=== PATIENT | female | born 1960 | race Caucasian/White ===

== ENCOUNTER 2021-07-11 14:16 | Emergency (ER) | payer BC ==
--- OUTSIDE RECORDS SUMMARY | 2021-07-11 14:19 | XMS REPORT | Continuity of Care Document ---
:1960 Author Organization [facility] t Address [address] [place] [address] Care Team Providers Name Role Phone HANNAH JOHNSON Primary Care Physician Unavailable DIOMAMPO Attending Clinician Unavailable DIOMAMPO Attending Clinician Unavailable Therapist, Pulmonary Attending Clinician Unavailable Donovan Fleming MD Attending Clinician Payers Payer Name Policy Type Policy Number Effective Date Expiration Date S jean [facility] [id number] 2016 00:00:00 Problems Condition Condition Condition Status Onset Resolution Last Treating Co mments Source Name Details Category Date Date Treatment Clinician Date Acute Acute Disease Active 2020-02 Univers hypoxemic hypoxemic 02-27 ity of [place] 00 Medi rodrigue due to due to Branch COVID-19 COVID-19 Hypothyroi Hypothyroi Disease Active 2011-02 Overview : Univers dism dism 2-07 Formattin ity of 00:00: g of this [place] 00 note Medical might be Branch different from the original. ICD10 Diagnosis Term Educational Technologist Utility HLD HLD Disease Active 2011-02 Overview: Univer s (hyperlipi (hyperlipi 2-07 Formattin ity of demia) demia) 00:00: g of this [place] 00 note Medical might be Branch different from the original. ICD10 Diagnosis Term Educational Technologist Utility Prediabete Prediabete Disease Active 2012-1 U nivers s s 2-07 ity of 00:00: [place] 00 [facility] Obesity Obesity Disease Active 2011-02 Univers 04-03 ity of 00:00: [place] 00 [facility] Allergies, Adverse Reactions, Alerts Allergy Allergy Status Severity Reaction(s) Onset Inactive Treating Comm ents Source Name Type Date Date Clinician NO KNOWN Drug Active [facility] ALLERGIE Class ity of S [facility] Social History Social Habit Start Date Stop Date Quantity Comments Source Exposure to Not sure [facility] SARS-CoV-2 (event) [facility] Alcohol intake 2021-02-13 2021-02-13 Current University of 00:00:00 00:00:00 non-drinker of [facility] alcohol [place] (finding) Cigarettes smoked 2021-01-26 2021-01-26 Univers ity of current (pack per 00:00:00 00:00:00 [facility] ) - Reported Branch Cigarette 2021-01-26 2021-01-26 University of pack-years 00:00:00 00:00:00 [facility] Tobacco use and 2021-01-26 2021-01-26 Never used Universit y of exposure 00:00:00 00:00:00 [facility] History of tobacco 1991-12-27 2017-12-26 Cigarette Smoker University of use 00:00:00 00:00:00 [facility] Sex Ass[birth year] At [birth year] Universit y of 00:00:00 00:00:00 [facility] Smoking Status Start Date Stop Date Source Former smoker 2021-01-26 00:00:00 2021-01-26 00:00:00 Universi ty of [facility] Medications Ordered Filled Start Stop Current Ordering Indication Dosage Frequency Signature Comments Components Source Medication Medication Date Date Medication? Clinician (SIG) Name Name levothyroxi 2020-02 Yes 50ug Take 50 Uni vers ne 2-02 mcg by ity of (SYNTHROID) 13:12: mouth [place] 50 mcg 15 every Medical tablet morning. Branch budesonide/ 2020-02 Yes Inhale Univ ers formoterol 2-02 every ity of fumarate 13:12: other day. Doni as (SYMBICORT 15 Medical INHALE) Branch metformin 2020-02 Yes 500mg Take 500 Uni vers ER 500 mg 2-02 mg by ity of 24 hr 13:12: mouth 2 [place] tablet 15 (two) Medical times Branch daily. AMLODIPINE 2020-02 Yes 5mg [address] [facility] s BESYLATE, 2-02 ity of BULK, MISC 13:12: [place] 15 Medical Branch cholecalcif 2020-02 Yes [id number] 1000U Take 1 Univers gerson, 1-21 tablet by ity of vitamin D3, 00:00: mouth [place] 25 mcg 00 daily. Medical (1,000 Branch unit) tablet albuterol 2020-02 Yes [id number] 2{puff} Inhale 2 Univers 90 1-20 Puffs ity of mcg/actuati 00:00: every 6 [place] as on inhaler 00 (six) Medical hours as Branch needed for Wheezing, Shortness of Breath, Bronchospa sm or Chest tightness. Lancets 2011-02 Yes Univers (ACCU-CHEK 2-07 ity of SOFTCLIX 00:00: [place] LANCETS) 00 Medical [facility] Branch blood sugar 2011-[address] [facility] ers diagnostic 2-07 ity of (CHEMSTRIP 00:00: [place] BG) strip 00 [facility] Vital Signs Vital Name Observation Time Observation Value Comments Source Systolic blood 2021-02-10 144 mm[Hg] manual; reports University of pressure 20:00:00 took BP meds ~1 [place] Medica l hr ago. Branch Diastolic blood 2021-02-10 80 mm[Hg] manual; reports [facility] y of pressure 20:00:00 took BP meds ~1 [place] Medica l hr ago. Branch Heart rate 2021-02-10 82 /min [facility] 20:00:00 [facility] Respiratory rate 2021-02-10 20 /min [facility] 20:00:00 [facility] Oxygen saturation 2021-02-10 100 /min on 3 l/m NC; [facility] in Arterial blood 20:00:00 decreased to 2 [place] Me dical by Pulse oximetry l/m sitting, Branch during class Procedures This patient has no known procedures. Encounters Start End Encounter Admission Attending Care Care Encounter Source Date/Time Date/Time Type Type Clinicians Facility Department ID 2021-11-13 2021-11-13 Outpatient DANIELA VEGA [facility] [id number] Univers 14:00:00 14:00:00 [facility] [id number] 2021-05-01 2021-05-01 Outpatient R DANIELA RIDER [facility] [id number] Univers 14:00:00 18:37:46 DANIELA RIDER itgénesis [facility] 2021-02-10 2021-02-10 Ancillary Therapist, Adc Pulmonary [facility] [id number] Univers 14:30:00 16:15:28 Visit Wero Fleming GASTON [id number] [facility] [id number] Christie ewing PROFESSIO [phone] Ar dical [facility] 296 Branch BUILDING Results This patient has no known results.
[2021-07-11] MEDS ORDERED: NA CHLORIDE 0.9% 1,000 ML ONE (15:18)
[2021-07-11] MEDS ORDERED: FOLIC ACID 5 MG/ML VIAL ONE (15:19)
--- NOTE | 2021-07-11 15:26 | RAD REPORT ---
EXAM DESCRIPTION: CT - Head Brain Wo Cont - 07/11/2021 3:17 pm CLINICAL HISTORY: Neuro deficit, acute, stroke suspected Headache, drowsiness COMPARISON: No comparisons TECHNIQUE: All CT scans are performed using dose optimization technique as appropriate and may inclu de automated exposure control or mA/KV adjustment according to patient size. FINDINGS: No intracranial hemorrhage, hydrocephalus or extra-axial fluid collection.No areas of brai n edema or evidence of midline shift. Small midline lipoma. The paranasal sinuses and mastoids are clear. The calvarium is intact. IMPRESSION: No acute intracranial abnormality.
--- NOTE | 2021-07-11 15:51 | RAD REPORT ---
EXAM DESCRIPTION: MRI - Brain Wo Cont - 07/11/2021 3:36 pm CLINICAL HISTORY: WEAKNESS Headache, drowsiness, CVA symptomology COMPARISON: Head Brain Wo Cont dated 07/11/2021 TECHNIQUE: Multi-sequence, multiplanar MR imaging of the brain was performed without contrast. FINDINGS: No intracranial hemorrhage, hydrocephalus or extra-axial fluid collections. No edema or sh ift of midline structures. No findings to suspect brain mass. DWI is negative for acute CVA. Midline structures are normally formed. Benign corpus callosum lipoma noted. Mild multifocal paranasal sinus opacification. IMPRESSION: Negative for acute CVA or other acute intracranial process.
[2021-07-11 15:52] LABS: Urine Blood Negative (Negative); Urine Glucose Negative (Negative); Urine Protein Negative (Negative); Urine Specific Gravity >=1.030 (1.005-1.030); Urine pH 5.5 (5.0-7.0)
--- NOTE | 2021-07-11 15:52 | RAD REPORT ---
EXAM DESCRIPTION: RAD - Chest Single View - 07/11/2021 3:47 pm CLINICAL HISTORY: COUGH Chest pain. COMPARISON: Chest Pa And Lat (2 Views) dated 10/06/2018; Chest Pa And Lat (2 Views) dated 04/21/2017; Chest Pa And Lat (2 Views) dated 11/14/2016 FINDINGS: Portable technique limits examination quality. The lungs are grossly clear. The heart is normal in size. No displaced fractures. IMPRESSION: No acute intrathoracic process suspected.
[2021-07-11 16:13] LABS: Absolute Lymphocytes (CBC) 1.6 K/uL (0.7-4.9); Hematocrit 41.2 % (36.0-45.0); Lymphocytes % 16.5 % (15.3-44.8); MPV 7.4 fL (7.6-11.3); RBC Red Blood Cell Count 4.98 M/uL (3.86-4.86)
[2021-07-11 16:14] LABS: Protime INR 1.01
--- NOTE | 2021-07-11 16:34 | RAD REPORT ---
EXAM DESCRIPTION: - CP - 07/11/2021 4:20 pm CLINICAL HISTORY: TIA Headache, drowsiness COMPARISON: Brain Wo Cont dated 07/11/2021 TECHNIQUE: Real-time sonographic evaluation of both carotid systems was performed. Doppler interroga tion was performed with waveform tracing bilaterally. FINDINGS: Normal high resistance waveforms are noted in both external carotid arteries. The common c arotid arteries and internal carotid arteries show normal low resistance waveforms. Minimal plaquing is seen in both proximal internal carotid arteries. Peak systolic and end diastolic velocity values and the ICA/CCA ratios are in the non-hemodynamically significant range. Antegrade flow seen in both vertebral arteries. IMPRESSION: Minimal plaquing is seen in both proximal internal carotid arteries. No evidence of a hemodynamically significant stenosis.
[2021-07-11 16:36] LABS: Albumin 3.9 g/dL (3.4-5.0); Bilirubin Direct 0.1 mg/dL (0-0.2); Bilirubin Total 0.5 mg/dL (0.2-1.0); C-Reactive Protein 10.6 mg/L (<3.00); Magnesium 2.1 mg/dL (1.8-2.4); Potassium 3.7 mmol/L (3.5-5.1); Protein, Total 7.9 g/dL (6.4-8.2); Troponin High Sensitivity 5.6 pg/mL (<58.9)
[2021-07-11] MEDS ORDERED: ASPIRIN 81 MG CHEWABLE TABLET ONE (16:51)
--- NOTE | 2021-07-11 17:24 | EDPHYS ---
Physician Documentation [facility] Name: Yin Blood Age: 61 yrs Sex: Female : 1960 Arrival Date: 07/11/2021 Time: 14:18 Bed 5 Private MD: ED Physician Artem Jackson HPI: 07/11 17:16 This 61 yrs old Female presents to ER via Ambulatory with complaints of kingsley Facial Droop. 17:16 The patient presents to the emergency department with weakness of the left side of the kingsley face, that is mild. Onset: The symptoms/episode began/occurred 11 day(s) ago. Context: occurred at an unknown location. Associated signs and symptoms: Pertinent positives: left eyelid droopy. Severity of symptoms: At their worst the symptoms were mild in the emergency department the symptoms are unchanged. Patient's baseline: Neuro: alert and fully oriented. Current symptoms: paralysis or paresis, of the left eye, that is mild. The patient has not experienced similar symptoms in the past. Historical: - Allergies: 14:57 cats; ww 14:57 DOGS; ww 14:57 DUST; ww 14:57 Grass; ww 14:57 MOLD; ww 14:57 trees; ww - PMHx: 14:57 borderline DM; Hypertension; lyme disease; ww - Immunization history:: Adult Immunizations up to date. - Social history:: Smoking status: Patient denies any tobacco usage or history of. - Family history:: not pertinent. ROS: 17:16 Constitutional: Negative for fever, chills, and weight loss, Eyes: Negative for injury, kingsley pain, redness, and discharge, ENT: Negative for injury, pain, and discharge, Neck: Negative for injury, pain, and swelling, Cardiovascular: Negative for chest pain, palpitations, and edema, Respiratory: Negative for shortness of breath, cough, wheezing, and pleuritic chest pain, Abdomen/GI: Negative for abdominal pain, nausea, vomiting, diarrhea, and constipation, Back: Negative for injury and pain, : Negative for injury, bleeding, discharge, and swelling, MS/Extremity: Negative for injury and deformity, Skin: Negative for injury, rash, and discoloration, Psych: Negative for depression, anxiety, suicide ideation, homicidal ideation, and hallucinations, Allergy/Immunology: Negative for hives, rash, and allergies, Endocrine: Negative for neck swelling, polydipsia, polyuria, polyphagia, and marked weight changes, Hematologic/Lymphatic: Negative for swollen nodes, abnormal bleeding, and unusual bruising. 17:16 Neuro: Positive for weakness, of the left eye. Exam: 17:16 Constitutional: This is a well developed, well nourished patient who is awake, alert, kingsley and in no acute distress. Head/Face: Normocephalic, atraumatic. Eyes: Pupils equal round and reactive to light, extra-ocular motions intact. Lids and lashes normal. Conjunctiva and sclera are non-icteric and not injected. Cornea within normal limits. Periorbital areas with no swelling, redness, or edema. ENT: Nares patent. No nasal discharge, no septal abnormalities noted. Tympanic membranes are normal and external auditory canals are clear. Oropharynx with no redness, swelling, or masses, exudates, or evidence of obstruction, uvula midline. Mucous membranes moist. Neck: Trachea midline, no thyromegaly or masses palpated, and no cervical lymphadenopathy. Supple, full range of motion without nuchal rigidity, or vertebral point tenderness. No Meningismus. Chest/axilla: Normal chest wall appearance and motion. Nontender with no deformity. No lesions are appreciated. Cardiovascular: Regular rate and rhythm with a normal S1 and S2. No gallops, murmurs, or rubs. Normal PMI, no JVD. No pulse deficits. Respiratory: Lungs have equal breath sounds bilaterally, clear to auscultation and percussion. No rales, rhonchi or wheezes noted. No increased work of breathing, no retractions or nasal flaring. Abdomen/GI: Soft, non-tender, with normal bowel sounds. No distension or tympany. No guarding or rebound. No evidence of tenderness throughout. Back: No spinal tenderness. No costovertebral tenderness. Full range of motion. Skin: Warm, dry with normal turgor. Normal color with no rashes, no lesions, and no evidence of cellulitis. MS/ Extremity: Pulses equal, no cyanosis. Neurovascular intact. Full, normal range of motion. Psych: Awake, alert, with orientation to person, place and time. Behavior, mood, and affect are within normal limits. 17:16 Neuro: Orientation: is normal, appropriate for stated age, no acute changes, Mentation: is normal, Memory: is normal, Cranial nerves: no acute changes, extraocular movements are intact, decreased ocular muscle tone in the left eyebrow and left upper eyelid, Motor: is normal, Sensation: is normal, no obvious gross deficits, appropriate no acute changes, Gait: is steady, appropriate for age, seizure activity, is not displayed by the patient. 17:52 ECG was reviewed by the Attending Physician. [facility] Vital Signs: 14:56 BP 179 / 88; Pulse 83; Resp 18; Temp 98.4; Pulse Ox 98% ; Weight 107.5 kg; Height 5 ft. ww 6 in. (167.64 cm); Pain 0/10; 16:00 BP 161 / 71; Pulse 80; Resp 17; Pulse Ox 98% on R/A; ll1 17:47 BP 158 / 76; Pulse 80; Resp 17; Pulse Ox 98% ; ll1 14:56 Body Mass Index 38.25 (107.50 kg, 167.64 cm) ww NIH Stroke Scale Scores: 17:52 NIHSS Score: 1 kingsley MDM: 15:00 Patient medically screened. [facility] 17:20 Data reviewed: vital signs, nurses notes, lab test result(s), EKG, radiologic studies, [facility] CT scan, doppler, MRI, plain films. Data interpreted: fish warden: rate is 83 beats/min, rhythm is regular, Pulse oximetry: on room air is 98 %. Test interpretation: by ED physician or midlevel provider: ECG, plain radiologic studies. Counseling: I had a detailed discussion with the patient and/or guardian regarding: the historical points, exam findings, and any diagnostic results supporting the discharge/admit diagnosis, lab results, radiology results, the need for outpatient follow up, for definitive care, a family practitioner, a neurologist. Physician consultation: Jonathan Go MD and will see patient in office, in 2-3 days. 07/11 15:03 Order name: Basic Metabolic Panel; Complete Time: 16:41 [facility] 07/11 15:03 Order name: CBC with Diff [facility] 07/11 15:03 Order name: LFT's; Complete Time: 16:41 [facility] 07/11 15:03 Order name: Magnesium; Complete Time: 16:41 [facility] 07/11 15:03 Order name: NT PRO-BNP; Complete Time: 16:41 [facility] 07/11 15:03 Order name: PT-INR; Complete Time: 16:23 07/11 15:03 Order name: Troponin HS; Complete Time: 16:41 [facility] 07/11 15:03 Order name: XRAY Chest (1 view); Complete Time: 16:23 [facility] 07/11 15:03 Order name: Sed Rate 07/11 15:03 Order name: CRP; Complete Time: 16:41 [facility] 07/11 15:03 Order name: CT Head Brain wo Cont; Complete Time: 15:29 [facility] 07/11 15:52 Order name: Urine Dipstick-Ancillary; Complete Time: 16:23 EDMS 07/11 17:27 Order name: TSH 07/11 15:03 Order name: EKG; Complete Time: 15:04 [facility] 07/11 15:03 Order name: Cardiac monitoring; Complete Time: 15:41 [facility] 07/11 15:03 Order name: EKG - Nurse/Tech; Complete Time: 15:41 [facility] 07/11 15:03 Order name: IV Saline Lock; Complete Time: 15:04 [facility] 07/11 15:03 Order name: Labs collected and sent; Complete Time: 15:04 07/11 15:03 Order name: O2 Per Protocol; Complete Time: 15:04 07/11 15:03 Order name: O2 Sat Monitoring; Complete Time: 15:04 [facility] 07/11 15:03 Order name: US Carotid Artery Bilateral; Complete Time: 16:41 [facility] 07/11 15:21 Order name: Brain Wo Cont; Complete Time: 16:23 EDMS EC:52 Rate is 90 beats/min. Rhythm is regular. QRS [place] is Normal. MT interval is normal. QRS kings[place] interval is normal. QT interval is normal. No Q waves. T waves are Normal. No ST changes noted. Clinical impression: NSR w/ Non-specific ST/T Changes and No evidence of ischemia. Interpreted by me. Reviewed by me. Administered Medications: 16:26 Drug: NS 0.9% 1000 ml Route: IV; Rate: 1 bolus; Site: left forearm; ph 18:57 Follow up: Response: No adverse reaction; IV Status: Completed infusion; IV Intake: ll1 900ml 16:26 Drug: foLIC Acid 1 mg Route: IVPB; Site: left antecubital; ph 18:57 Follow up: Response: No adverse reaction; IV Status: Completed infusion; IV Intake: ll1 0.2ml 16:49 Drug: Aspirin Chewable Tablet 324 mg Route: PO; jl7 18:57 Follow up: Response: No adverse reaction ll1 18:57 Not Given (left with prescriptionn): valACYclovir 1000 mg PO once ll1 Disposition Summary: 07/11/21 17:24 Discharge Ordered Location: Home kingsley Problem: new kingsley Symptoms: have improved kingsley Condition: Stable kingsley Diagnosis - Type 2 diabetes mellitus with hyperglycemia kingsley - Steel's palsy kingsley - Essential (primary) hypertension kingsley Followup: kingsley - With: Luis A Dill MD - When: 2 - 3 days - Reason: Recheck today's complaints, Continuance of care, Re-evaluation by your physician Followup: kingsley - With: Jonathan Go MD - When: 2 - 3 days - Reason: Recheck today's complaints, Re-evaluation by your physician Discharge Instructions: - Discharge Summary Sheet kingsley - Steel Palsy, Adult kingsley - Type 2 Diabetes Mellitus, Diagnosis, Adult kingsley - Hypertension, Adult ikngsley - Hypertension, Adult, Itus-ae-Hrec kingsley - How to Take Your Blood Pressure, [id number] kingsley - Aspirin and Your Heart kingsley - Managing Your Hypertension kingsley Forms: - Medication Reconciliation Form kingsley - Thank You Letter kingsley - Antibiotic Education kingsley - Prescription Opioid Use kingsley Prescriptions: - Valtrex 1 gram Oral tablet - take 1 tablet by ORAL route 3 times per day; 21 tablet; Refills: 0, Product kingsley Selection Permitted NIH Stroke Scale - NIH Stroke Score Date: 07/11/2021 Time: 17:52 Total Score = 1 1a. Level of Consciousness (LOC) - 0(Alert) 1b. Level of Consciousness (LOC) (Month \T\ Age) - 0(Both) 1c. LOC Commands (Open \T\ Closes Eyes/Surgical Lead) - 0(Both) 2. Best Gaze (Lateral Gaze Paresis) - 0(Normal) 3. Visual Field Loss - 0(No visual loss) 4. Facial Palsy - 1(Minor Paralysis) 5a. Left Arm: Motor (10-second hold) - 0(No drift) 5b. Right Arm: Motor (10-second hold) - 0(No drift) 6a. Left Leg: Motor (5-second hold - always test supine) - 0(No drift) 6b. Right Leg: Motor (5-second hold - always test supine) - 0(No drift) 7. Limb Ataxia (finger/nose \T\ heel/rendon - test with eyes open) - 0(Absent) 8. Sensory Loss (pinprick arms/legs/face) - 0(Normal) 9. Best Language: Aphasia (description/naming/reading) - 0(No aphasia) 10. Dysarthria (speech clarity - read or repeat words) - 0(Normal) 11. Extinction and Inattention (visual/tactile/auditory/spatial/personal) - 0(No abnormality) Initials: kingsley Signatures: Dispatcher [employer] EDMS Artem Jackson MD MD cha Hall, Patricia, RN RN ph Kate Hunt RN RN [id number] Jennifer Sherman, RN RN ww Brad Jones RN ll1 Corrections: (The following items were deleted from the chart) 15:21 15:04 MR STROKE PROTOCOL+MRI.RAD.DUY ordered. EDPA EDPA
--- NOTE | 2021-07-11 17:24 | ER ---
Nurse's Notes [facility] Name: Yin Blood Age: 61 yrs Sex: Female : 1960 Arrival Date: 07/11/2021 Time: 14:18 Bed 5 Private MD: Diagnosis: Type 2 diabetes mellitus with hyperglycemia;Steel's palsy;Essential (primary) hypertension Presentation: 07/11 14:56 Chief complaint: Patient states: Sent from Dr. Ocampo for left eye drooping. ww Coronavirus screen: Client denies travel out of the [place] in the last 14 days. Ebola Screen: Patient denies travel to an Ebola-affected area in the 21 days before illness onset. Initial Sepsis Screen: Does the patient meet any 2 criteria? No. Patient's initial sepsis screen is negative. Does the patient have a suspected source of infection? No. Patient's initial sepsis screen is negative. Risk Assessment: Do you want to hurt yourself or someone else? Patient reports no desire to harm self or others. Onset of symptoms was July 11, 2021. 14:56 Method Of Arrival: Ambulatory 14:56 Acuity: DEVON 3 ww Triage Assessment: 15:05 General: Appears in no apparent distress. Behavior is calm, cooperative, appropriate ll1 for age. Pain: Denies pain. Historical: - Allergies: 14:57 cats; ww 14:57 DOGS; ww 14:57 DUST; ww 14:57 Grass; ww 14:57 MOLD; ww 14:57 trees; ww - PMHx: 14:57 borderline DM; Hypertension; lyme disease; ww - Immunization history:: Adult Immunizations up to date. - Social history:: Smoking status: Patient denies any tobacco usage or history of. - Family history:: not pertinent. Screenin:00 Fall Risk IV access (20 points). Total Javier Fall Scale indicates No Risk (0-24 pts). ll1 15:05 Abuse screen: Denies threats or abuse. Nutritional screening: No deficits noted. ll1 Tuberculosis screening: No symptoms or risk factors identified. Assessment: 15:05 General: Appears in no apparent distress. Behavior is calm, cooperative, appropriate ll1 for age. Pain: Denies pain. Neuro: Level of Consciousness is awake, alert, obeys commands, Oriented to person, place, time, situation, Appropriate for age Functional Mental Disability Teacher are equal bilaterally Moves all extremities. Full function Gait is steady, Speech is normal, Facial symmetry appears normal, Pupils are PERRLA, Reports L eye drooping. Cardiovascular: No deficits noted. Respiratory: No deficits noted. Musculoskeletal: No deficits noted. 16:00 Reassessment: No changes from previously documented assessment. Patient and/or family ll1 updated on plan of care and expected duration. Pain level reassessed. Patient is alert, oriented x 3, equal unlabored respirations, skin warm/dry/pink. 17:00 Reassessment: No changes from previously documented assessment. Patient and/or family ll1 updated on plan of care and expected duration. Pain level reassessed. Patient is alert, oriented x 3, equal unlabored respirations, skin warm/dry/pink. 17:45 Reassessment: No changes from previously documented assessment. Patient and/or family ll1 updated on plan of care and expected duration. Pain level reassessed. Patient is alert, oriented x 3, equal unlabored respirations, skin warm/dry/pink. Vital Signs: 14:56 BP 179 / 88; Pulse 83; Resp 18; Temp 98.4; Pulse Ox 98% ; Weight 107.5 kg; Height 5 ft. ww 6 in. (167.64 cm); Pain 0/10; 16:00 BP 161 / 71; Pulse 80; Resp 17; Pulse Ox 98% on R/A; ll1 17:47 BP 158 / 76; Pulse 80; Resp 17; Pulse Ox 98% ; ll1 14:56 Body Mass Index 38.25 (107.50 kg, 167.64 cm) NIH Stroke Scale Scores: 17:52 NIHSS Score: 1 [facility] ED Course: 14:18 Patient arrived in ED. as 14:57 Triage completed. 14:57 Arm band placed on. 14:59 Brad Jones, LEOLA is Primary Nurse. 1 15:00 Artem Jackson MD is Attending Physician. [facility] 15:04 Patient placed in an exam room, on a stretcher. 1 15:07 Patient has correct armband on for positive identification. Bed in low position. Call mh5 light in reach. Side rails up X2. Adult w/ patient. Warm blanket given. campus monitor on. Pulse ox on. NIBP on. 15:19 CT Head Brain wo Cont In Process Unspecified. EDMS 15:21 Brain Wo Cont In Process Unspecified. EDMS 15:42 EKG done, by ED staff, reviewed by Artem Jackson MD. mh5 15:49 XRAY Chest (1 view) In Process Unspecified. EDMS 15:57 CRP Sent. mh5 15:57 Sed Rate Sent. mh5 15:57 Basic Metabolic Panel Sent. mh5 15:57 CBC with Diff Sent. mh5 15:57 LFT's Sent. mh5 15:57 Magnesium Sent. mh5 15:57 NT PRO-BNP Sent. mh5 15:57 PT-INR Sent. mh5 15:57 Troponin HS Sent. mh5 16:04 Initial lab(s) drawn, by me, sent to lab. Missed attempt(s): 22 gauge in right ll1 antecubital area. Bleeding controlled, band aid applied, catheter tip intact. 16:22 US Carotid Artery Bilateral In Process Unspecified. EDMS 17:22 Luis A Dill MD is Referral Physician. [facility] 17:23 Jonathan Go MD is Referral Physician. [place] 17:45 No provider procedures requiring assistance completed. IV discontinued, intact, ll1 bleeding controlled, No redness/swelling at site. Pressure dressing applied. Administered Medications: 16:26 Drug: NS 0.9% 1000 ml Route: IV; Rate: 1 bolus; Site: left forearm; ph 18:57 Follow up: Response: No adverse reaction; IV Status: Completed infusion; IV Intake: ll1 900ml 16:26 Drug: foLIC Acid 1 mg Route: IVPB; Site: left antecubital; ph 18:57 Follow up: Response: No adverse reaction; IV Status: Completed infusion; IV Intake: ll1 0.2ml 16:49 Drug: Aspirin Chewable Tablet 324 mg Route: PO; jl7 18:57 Follow up: Response: No adverse reaction ll1 18:57 Not Given (left with prescriptionn): valACYclovir 1000 mg PO once ll1 Medication: 15:05 VIS not applicable for this client. ll1 Intake: 18:57 IV: 0ml; Total: 0ml. ll1 18:57 IV: 900ml; Total: 900ml. ll1 Outcome: 17:24 Discharge ordered by . [place] 17:47 Patient left the ED. ll1 17:47 Discharged to home ambulatory. ll1 17:47 Condition: stable 17:47 Discharge instructions given to patient, Instructed on discharge instructions, follow up and referral plans. medication usage, Demonstrated understanding of instructions, follow-up care, medications, Prescriptions given X 2. 17:55 Patient left the ED. ll1 NIH Stroke Scale - NIH Stroke Score Date: 07/11/2021 Time: 17:52 Total Score = 1 1a. Level of Consciousness (LOC) - 0(Alert) 1b. Level of Consciousness (LOC) (Month \T\ Age) - 0(Both) 1c. LOC Commands (Open \T\ Closes Eyes/Appeals Analyst) - 0(Both) 2. Best Gaze (Lateral Gaze Paresis) - 0(Normal) 3. Visual Field Loss - 0(No visual loss) 4. Facial Palsy - 1(Minor Paralysis) 5a. Left Arm: Motor (10-second hold) - 0(No drift) 5b. Right Arm: Motor (10-second hold) - 0(No drift) 6a. Left Leg: Motor (5-second hold - always test supine) - 0(No drift) 6b. Right Leg: Motor (5-second hold - always test supine) - 0(No drift) 7. Limb Ataxia (finger/nose \T\ heel/rendon - test with eyes open) - 0(Absent) 8. Sensory Loss (pinprick arms/legs/face) - 0(Normal) 9. Best Language: Aphasia (description/naming/reading) - 0(No aphasia) 10. Dysarthria (speech clarity - read or repeat words) - 0(Normal) 11. Extinction and Inattention (visual/tactile/auditory/spatial/personal) - 0(No abnormality) Initials: [place] Signatures: Dispatcher [employer] EDMS Artem Jackson MD MD cha Martinez, Amelia as Hall, Patricia, RN RN ph Martinez, Maria 5 Kate Hunt RN RN jl7 Brad Jones RN RN 1 Jennifer Sherman RN RN ww Corrections: (The following items were deleted from the chart) 18:42 18:41 BP 158 / 76; Pulse 80bpm; Resp 17bpm; Pulse Ox 98%; ll1 ll1
[2021-07-11 17:56] VITALS: BP 179/88; TEMP 98.4; O2SAT 98
--- NOTE | 2021-07-13 07:44 | EKG ---
Test Date: 2021-07-11 Test Time: 15:48:21 Oriental Medicine Practitioner: LELIA MEASUREMENT RESULTS: Intervals: Rate: 72 NV: 146 QRSD: 84 QT: 400 QTc: 438 [place]: P: 36 NV: 146 QRS: -4 T: 34 INTERPRETIVE STATEMENTS: Normal sinus rhythm Possible Anterior infarct, age undetermined Abnormal ECG No previous ECG available for comparison Electronically Signed On 07-13-21 07:37:46 CDT by Adeel Penny
== END 2021-07-11 17:55 | disposition home or self-care (01) ==
LOC: ER 14:16
DX: G51.0 Bell's palsy (principal); E11.65 Type 2 diabetes mellitus with hyperglycemia; I10 Essential (primary) hypertension; J30.1 Allergic rhinitis due to pollen; J30.81 Allergic rhinitis due to animal (cat) (dog) hair and dander; J30.89 Other allergic rhinitis; Z91.048 Other nonmedicinal substance allergy status
CPT/HCPCS: 93005; 85025; 80048; 36415; 83735; 85610; 80076; 85652; 84443; 81003; 84484; 83880; 86140; 70450; 71045; 93880; 70551; J7030; 96365; 96366; 99284